=== PATIENT | male | born 1945 | race Caucasian/White ===

== ENCOUNTER 2023-02-27 08:43 | Day surgery (SDC) | payer OTHER ==
[~2023-02-27] VITALS: Ht 185.4 cm; Wt 107.2 kg
[~2023-02-27 08:43] MED LIST: ARFO15VI18 IH; ARFO15VI18 INH; ATOR40TA75 PO; ATOR80TA59 PO; BAYE81TA10 PO; BUDE0.5S6 INH; DILT1CAP46 PO; DILT1TAB7 PO; ELIQ5TAB PO; FURO20TA2 PO; GNP400TA10 PO; METO1TAB87 PO; NITR0.4S14 SL; OMEP40CA5 PO; POTA10CA60 PO; PRAM0.5T4 PO; TOPI100T9 PO; TRAM50TA2 PO; TRAZ-252 PO; VALA1TAB5 PO; VENTAER INH; VITA1CAP14 PO; ZZZQ50LI PO
[2023-02-27] MEDS ORDERED: ceFAZolin SOD 2 GM in IV 1 EA IV ONE (09:05)
[2023-02-27] MEDS ORDERED: LIDOCAINE 2% MDV 20ML VIAL As Ordered ONE (09:44)
[2023-02-27] MEDS ORDERED: ONDANSETRON 4MG 2ML VIAL As Ordered ONE (10:13)
[2023-02-27] MEDS ORDERED: LIDOCAINE 2% 100MG/5ML SDV (FOR ANES.) As Ordered ONE (10:13)
[2023-02-27] MEDS ORDERED: MIDAZOLAM INJ 2MG/2ML VIAL As Ordered ONE (10:13)
[2023-02-27] MEDS ORDERED: ePHEDrine SULFATE 25 MG/5 ML(5MG/ML) SYRINGE As Ordered ONE (10:13)
[2023-02-27] MEDS ORDERED: fentaNYL 100 MCG/2 ML INJECTION As Ordered ONE (10:13)
[2023-02-27] MEDS ORDERED: propofoL 200 MG/20 ML VIAL As Ordered ONE (10:13)
[2023-02-27] MEDS ORDERED: ACETAMINOPHEN 1000MG 100ML IV BAG As Ordered ONE (10:14)
[2023-02-27] MEDS ORDERED: HYDR-3713 PO (11:00)
[2023-02-27] MEDS ORDERED: MACR100C43 PO (11:00)
[2023-02-27] MEDS ORDERED: LR 1,000 ML IV SCH (11:15)
[2023-02-27] MEDS ORDERED: oxyCODONE 5MG TAB PO PRN (11:15)
[2023-02-27] MEDS ORDERED: ONDANSETRON 4MG 2ML VIAL IV PRN (11:15)
[2023-02-27] MEDS ORDERED: HYDROMORPHONE HCL 0.5 MG/ 0.5 ML SYRINGE IV PRN (11:15)
[2023-02-27] MEDS ORDERED: fentaNYL 100 MCG/2 ML INJECTION IV PRN (11:15)
[2023-02-27 13:10] VITALS: BP 112/61; TEMP 97.1; O2SAT 99
[2023-02-28] MEDS ORDERED: UNRESOLVED CLARIFICATION ENTRY XX SCH (00:01)
== END 2023-02-27 13:15 | disposition home or self-care (01) ==
LOC: M SDC 08:43
PROVIDERS: ATTEND Urology
DX: N43.3 Hydrocele, unspecified (principal); I48.91 Unspecified atrial fibrillation; I25.2 Old myocardial infarction; I10 Essential (primary) hypertension; E78.5 Hyperlipidemia, unspecified; K57.92 Diverticulitis of intestine, part unspecified, without perforation or abscess without bleeding; J44.9 Chronic obstructive pulmonary disease, unspecified; N40.0 Benign prostatic hyperplasia without lower urinary tract symptoms; G47.33 Obstructive sleep apnea (adult) (pediatric); Z79.01 Long term (current) use of anticoagulants; Z79.51 Long term (current) use of inhaled steroids; Z79.899 Other long term (current) drug therapy; G40.909 Epilepsy, unspecified, not intractable, without status epilepticus; Z87.891 Personal history of nicotine dependence; Z88.2 Allergy status to sulfonamides; Z88.5 Allergy status to narcotic agent; Z88.1 Allergy status to other antibiotic agents
CPT/HCPCS: 55040; 55520; 88302; 88304; J0131; J0665; J0690; J1100; J2250; J2405; J3010

== ENCOUNTER → 2023-03-19 | Outpatient (REF) | payer OTHER ==
[~2023-03-19] MED LIST changes: +HYDR-3713 PO; +MACR100C43 PO
[2023-03-19 11:09] LABS: APPEARANCE, URINE CLEAR (CLEAR); BACTERIA, URINE AUTO NEGATIVE (NEGATIVE); BILIRUBIN, URINE AUTO NEGATIVE (NEGATIVE); BLOOD, URINE BLOOD NEGATIVE (NEGATIVE); COLOR, URINE YELLOW (YELLOW); GLUCOSE, URINE (UA) AUTO NEGATIVE (NEGATIVE); KETONE, URINE AUTO NEGATIVE (NEGATIVE); LEUKOCYTE ESTERASE, URINE AUTO NEGATIVE (NEGATIVE); MUCUS, URINE SMALL (NEGATIVE); NITRITE, URINE AUTO NEGATIVE (NEGATIVE); PROTEIN, URINE AUTO NEGATIVE (NEGATIVE); RBC, URINE AUTO 0 /HPF (0-3); SPECIFIC GRAVITY URINE AUTO 1.019 (1.002-1.035); SQUAMOUS EPITHELIAL CELL UR AU 0 /HPF (0-6); WBC, URINE AUTO 0 /HPF (0-3)
== END ==
LOC: M SMT 10:17
PROVIDERS: ATTEND Physician Assistant
DX: Z48.816 Encounter for surgical aftercare following surgery on the genitourinary system (principal); Z79.899 Other long term (current) drug therapy